=== PATIENT | female | born 1940 | race African-American/Black ===

== ENCOUNTER 2017-06-02 00:49 | Emergency (ER) | payer MEDICARE ==
[2017-06-02] VITALS (20 sets, daily range): BP systolic 63–125; BP diastolic 36–90
[~2017-06-02] VITALS: Ht 165.1 cm; Wt 71.7 kg
[2017-06-02] MEDS ORDERED: NORCO 5-325 TA1 EACH ORAL (00:55)
[2017-06-02] MEDS ORDERED: LOVENOX10 MG SUBQ (00:55)
[2017-06-02 01:23] LABS: MEAN CORPUSCULAR HEMOGLOBIN 32.3 PG (27.0-31.0); MEAN CORPUSCULAR HGB CONC 33.2 G/DL (32.0-36.0); MEAN CORPUSCULAR VOLUME 97 FL (80-99); RED BLOOD COUNT 1.92 M/UL (4.20-5.40); RED CELL DISTRIBUTION WIDTH 21.8 % (11.6-14.8)
[2017-06-02 01:26] LABS: WHITE BLOOD COUNT 0.3 K/UL (4.8-10.8)
[2017-06-02 01:27] LABS: PLATELET COUNT 0 K/UL (150-450)
[2017-06-02 01:28] LABS: MEAN PLATELET VOLUME 0.2 FL (6.5-10.1)
[2017-06-02] MEDS ORDERED: Surgicel 4in x 8in TOPIC ONE (01:29)
[2017-06-02 01:40] LABS: INR 1.5 (0.9-1.1); PROTHROMBIN TIME 15.4 SEC (9.30-11.50)
[2017-06-02] MEDS ORDERED: Cefepime HCl 1 GM in D5W 55 ML IVPB SCH (01:45)
--- NOTE | 2017-06-02 01:50 | Emergency Room Report ---
History of Present Illness General Chief Complaint: Vaginal Source: Family Member Present Illness HPI Patient is a 77-year-old female brought in by EMS after increased vaginal bleeding. The patient noted be hypotensive by EMS. Patient had been previously transfused. She had prior history of cervical cancer which is metastatic. She had been noted to have bleeding from her vagina. She had been preceded treated with chemotherapy approximately one month ago. She reports having heavy bleeding.She had not been having any fever. The medics noted her blood pressure to be low Allergies: Coded Allergies: No Known Allergies (Unverified , 06/02/17) Patient History Past Medical History: see triage record Now: No Reviewed Nursing Documentation: PMH: Agreed, PSxH: Agreed Nursing Documentation-PMH Past Medical History: No History, Except For Hx Asthma: No - PE Hx Cancer: Yes - Cervical, DVT Review of Systems All Other Systems: negative except mentioned in HPI Physical Exam Vital Signs Date Time Temp Pulse Resp B/P Pulse Ox O2 Delivery O2 Flow Rate FiO2 06/02/17 00:41 Room Air 06/02/17 00:50 97.5 101 25 63/44 95 Sp02 EP Interpretation: reviewed, normal General Appearance: alert, severe distress, cachetic, Chronically Ill Head: atraumatic ENT: normal ENT inspection, hearing grossly normal, normal voice Neck: normal inspection, full range of motion, supple, no bony tend Respiratory: normal inspection, lungs clear, normal breath sounds, no respiratory distress, no retraction, no wheezing Cardiovascular #1: regular rate, rhythm, no edema Gastrointestinal: normal inspection, no guarding, mass Genitourinary: no CVA tenderness, os closed, other - large amount of blood at perineum Musculoskeletal: normal inspection, back normal, normal range of motion Neurologic: normal inspection, alert, responsive, speech normal, motor weakness - bilateral lower extremities Psychiatric: normal inspection, judgement/insight normal, mood/affect normal Skin: normal inspection, normal color, no rash Procedures Critical Care Time Critical Care Time Patient had a critical medical condition which untreated could potentially result in life or limb threatening injury. Total critical care time excluding procedures approximately 45 minutes. Medical Decision Making Diagnostic Impression: Primary Impression: Metastatic cancer Additional Impressions: Pancytopenia Acute hemorrhage ER Course Patient presented for vaginal bleeding. Differential diagnoses included was not limited to anemia, cytopenia, coagulopathy, vaginal laceration, among others. The patient was noted to be receiving Lovenox injections. The patient was type and crossed for blood as well as for FFP and platelets. The laboratory testing showed markedly pancytopenia with platelet count undetectable. The patient was noted to have previous antibodies. The patient' s vaginal area was packed with kerlex to attempt to control bleeding.The patient was given IV antibiotics. She started on IV fluids for hypotension.The patient was noted to have antibody that required special cross-matching. The patient was transfused fresh frozen plasma for coagulopathy. The patient noted have had previous radiation therapy.The patient was discussed with at [facility] for possible transfer for radiation treatment of bleeding. The patient noted have some improvement in blood pressure. Patient was given IV calcium for hyperkalemia.She's also given IV Lasix.The patient was noted to have improvement in her blood pressure transfusion. The patient will be transferred for higher level of care Labs Test 06/02/17 00:55 White Blood Count 0.3 K/UL (4.8-10.8) Red Blood Count 1.92 M/UL (4.20-5.40) Hemoglobin 6.2 G/DL (12.0-16.0) Hematocrit 18.7 % (37.0-47.0) Mean Corpuscular Volume 97 FL (80-99) Mean Corpuscular Hemoglobin 32.3 PG (27.0-31.0) Mean Corpuscular Hemoglobin Concent 33.2 G/DL (32.0-36.0) Red Cell Distribution Width 21.8 % (11.6-14.8) Platelet Count 0 K/UL (150-450) Mean Platelet Volume 0.2 FL (6.5-10.1) Neutrophils (%) (Auto) % (45.0-75.0) Lymphocytes (%) (Auto) % (20.0-45.0) Monocytes (%) (Auto) % (1.0-10.0) Eosinophils (%) (Auto) % (0.0-3.0) Basophils (%) (Auto) % (0.0-2.0) Prothrombin Time 15.4 SEC (9.30-11.50) Prothromb Time International Ratio 1.5 (0.9-1.1) Activated Partial Thromboplast Time 42 SEC (23-33) Rhythm Strip Diag. Results EP Interpretation: yes Rhythm: no PVC's, no ectopy, other - sinus tachycardia Last Vital Signs Date Time Temp Pulse Resp B/P Pulse Ox O2 Delivery O2 Flow Rate FiO2 06/02/17 00:50 97.5 101 25 63/44 95 Room Air Status: unchanged Disposition: ADMITTED INPATIENT Condition: Critical Referrals: NOT CHOSEN IPA/,REFERRING (PCP) Mik Nuñez Jun 02, 2017 01:50
[2017-06-02 01:52] LABS: ALANINE AMINOTRANSFERASE 32 U/L (3-33); ALBUMIN/GLOBULIN RATIO 0.4 (1.0-2.7); ANION GAP 14 (5-15); ASPARTATE AMINO TRANSFERASE 38 U/L (5-40); CALCIUM 8.5 mg/dL (8.6-10.2); CARBON DIOXIDE 19 mEQ/L (20-30); CHLORIDE 101 mEQ/L (98-107); CREATININE 2.9 mg/dL (0.5-0.9); HEMOLYSIS 0; SODIUM 134 mEQ/L (135-145)
[2017-06-02 01:53] LABS: POTASSIUM 6.2 mEQ/L (3.4-4.9)
[2017-06-02] MEDS ORDERED: Cefepime 1gm vial ONE (01:56)
[2017-06-02] MEDS ORDERED: Calcium Chloride 100mg/ml Vial IVP ONE (02:00)
[2017-06-02 02:16] LABS: BILIRUBIN,DIRECT 3.9 mg/dL (0.1-0.3)
[2017-06-02 07:45] LABS: MEAN CORPUSCULAR HEMOGLOBIN 31.4 PG (27.0-31.0); MEAN CORPUSCULAR HGB CONC 33.8 G/DL (32.0-36.0); MEAN CORPUSCULAR VOLUME 93 FL (80-99); PLATELET COUNT 15 K/UL (150-450); RED BLOOD COUNT 2.38 M/UL (4.20-5.40); RED CELL DISTRIBUTION WIDTH 17.5 % (11.6-14.8); WHITE BLOOD COUNT 0.1 K/UL (4.8-10.8)
[2017-06-02 07:55] LABS: ANION GAP 16 (5-15); CALCIUM 8.9 mg/dL (8.6-10.2); CARBON DIOXIDE 17 mEQ/L (20-30); CHLORIDE 102 mEQ/L (98-107); CREATININE 2.8 mg/dL (0.5-0.9); HEMOLYSIS 5; POTASSIUM 5.6 mEQ/L (3.4-4.9); SODIUM 135 mEQ/L (135-145)
[2017-06-02 10:43] LABS: ANISOCYTOSIS 1+; BAND NEUTROPHILS % (MANUAL) 0 % (0-8); BASOPHILS % (MANUAL) 0 % (0-2); EOSINOPHILS % (MANUAL) 0 % (0-3); HYPOCHROMASIA 1+; LYMPHOCYTES % (MANUAL) 78 % (20-45); NEUTROPHILS % (MANUAL) 19 % (45-75); PLATELET ESTIMATE DECREASED; PLATELET MORPHOLOGY NORMAL; TOTAL CELLS COUNTED 100
[2017-06-02 10:44] LABS: TARGET CELLS RARE
[2017-06-06 10:32] LABS: OTHERS PATHOLOGIST COMMENT
--- NOTE | 2017-06-07 01:02 | Cardiology Report ---
APPROVED REPORT EKG Measurement Heart [id number] Sinus tachycardia Cannot rule out Anterior infarct, age undetermined Abnormal ECG
== END 2017-06-02 10:31 | disposition short-term general hospital (02) ==
LOC: EDBD 00:49 → EMR 01:14 → EDBEDREQSVC 01:38 → EDBEDREQ 01:39 → EMR 10:31
DX: C53.9 Malignant neoplasm of cervix uteri, unspecified (principal); C79.9 Secondary malignant neoplasm of unspecified site; D61.818 Other pancytopenia; I95.89 Other hypotension; Z79.899 Other long term (current) drug therapy
CPT/HCPCS: 36415; 80048; 80053; 82248; 85007; 85025; 85610; 85730; 86850; 86870; 86900; 86901; 86920; 86927; 87040; 87081; 93005; 96361; 96374; 96375; 99291; J0692; J1940; J3490; P9016; P9034; P9047